=== PATIENT | male | born 2000 | race Caucasian/White ===

== ENCOUNTER 2021-03-29 23:22 | Emergency (ER) | payer OTHER ==
[2021-03-30 00:15] LABS: BASOPHIL 0.6 % (0-2); EOSINOPHIL 0.8 % (0-5); HGB 15.2 g/dl (13.2-18.0); LYMPHOCYTE 24.1 % (15-48); MCH 29.4 pg (25.0-31.0); MCHC 33.8 g/dL (32.0-36.0); MONOCYTE 11.1 % (0-12); MPV 9.1 fL (6.0-9.5); NEUTROPHIL 62.8 % (41-80); NRBC 0; PLT 312 K/uL (150-400); RBC 5.17 M/uL (4.70-6.00); RDW 12.4 % (11.5-14.0); WBC 10.5 K/uL (4.0-10.5)
[2021-03-30 00:16] LABS: BILIRUBIN NEGATIVE (NEGATIVE); BLOOD TRACE-INTACT Ery/uL (NEGATIVE); CLARITY CLEAR (CLEAR); COLOR YELLOW (YELLOW); GLUCOSE (U) NORMAL (NORMAL); LEUKOCYTES NEGATIVE Leu/uL (NEGATIVE); NITRITE NEGATIVE (NEGATIVE); PROTEIN NEGATIVE (NEGATIVE); SPECIFIC GRAVITY 1.025 (1.001-1.030); UROBILINOGEN 0.2 mg/dL (0.2-1.0)
[2021-03-30 00:33] LABS: URINARY RBC RARE
[2021-03-30 00:35] LABS: ALBUMIN 3.7 g/dL (3.4-5.0); BILIRUBIN - TOTAL 0.3 mg/dL (0.2-1.0); BUN/CREAT RATIO (CALC) 9.3 RATIO; CREATININE 1.07 mg/dL (0.67-1.17); GLOBULIN (CALCULATION) 4.2 g/dL; TOTAL PROTEIN 7.9 g/dL (6.4-8.2)
[2021-03-30] MEDS ORDERED: NAPROXEN500 MG PO ×2 (02:01→02:16)
[2021-03-30] MEDS ORDERED: CYCLOBENZAPRINE10 MG PO ×2 (02:01→02:16)
[2021-03-30] MEDS ORDERED: NORCO 5-325 TA1 EACH PO ×2 (02:01→02:26)
== END 2021-03-30 02:36 | disposition home or self-care (01) ==
LOC: FER 23:22
PROVIDERS: Internal Medicine
DX: S60.511A Abrasion of right hand, initial encounter (principal); S50.311A Abrasion of right elbow, initial encounter; M62.830 Muscle spasm of back; M25.561 Pain in right knee; M54.2 Cervicalgia; V48.5XXA Car driver injured in noncollision transport accident in traffic accident, initial encounter; Y93.89 Activity, other specified; Y92.410 Unspecified street and highway as the place of occurrence of the external cause
CPT/HCPCS: 36415; 70450; 71275; 72125; 80053; 81001; 85025; Q9967